=== PATIENT | male | born 1945 | race Caucasian/White ===

== ENCOUNTER 2018-05-07 15:47 | Inpatient (IN) | payer MEDICARE, OTHER ==
[~2018-05-07] VITALS: Ht 167.6 cm; Wt 69.9 kg
[2018-05-07 16:27] LABS: BASOPHILS # (AUTO) 0.1 /CMM (0.0-0.2); BASOPHILS % (AUTO) 1.1 % (0.0-2.0); EOSINOPHILS % (AUTO) 1.4 % (0.0-6.0); HEMATOCRIT 37 % (39-51); HEMOGLOBIN 12.6 g/dL (13.5-17.5); LYMPHOCYTES # (AUTO) 2.1 /CMM (0.8-4.8); LYMPHOCYTES % (AUTO) 23.4 % (20.0-44.0); MEAN CORPUSCULAR HGB CONC 34 g/dl (31.0-36.0); MEAN CORPUSCULAR VOLUME 100 fL (80-96); MONOCYTES # (AUTO) 1.3 /CMM (0.1-1.30); MONOCYTES % (AUTO) 14.2 % (2.0-12.0); NEUTROPHILS # (AUTO) 5.4 /CMM (1.8-8.9); NEUTROPHILS % (AUTO) 59.9 % (43.0-81.0); PLATELET COUNT (AUTO) 535 /CMM (150-450); RDW COEFFICIENT OF VARIATION 16.8 (11.5-15.0); RED BLOOD CELL COUNT(AUTO) 3.72 MIL/uL (4.5-6.0)
[2018-05-07 16:36] LABS: APPEARANCE,URINE Clear (CLEAR); BILIRUBIN,URINE Negative (NEGATIVE); BLOOD, URINE Negative Ery/uL (NEGATIVE); COLOR,URINE Yellow (YELLOW); KETONES,URINE Negative (NEGATIVE); LEUKOCYTE ESTERASE ,URINE Negative (NEGATIVE); NITRITE, URINE Negative (NEGATIVE); PH,URINE 5.5 (5.0-8.0); PROTEIN,URINE Negative (NEGATIVE); UGLUCOSE Negative (NEGATIVE); UROBILINOGEN,URINE 0.2 EU/dL (0.2)
[2018-05-07 16:37] LABS: CALCIUM, SERUM 8.8 mg/dL (8.5-10.1); CARBON DIOXIDE 30 mmol/L (21-32); CHLORIDE 108 mmol/L (98-107); CREATININE 1.1 mg/dL (0.6-1.3); GLUCOSE 112 mg/dL (74-106); POTASSIUM 4.2 mmol/L (3.5-5.1); SODIUM SERUM 144 mmol/L (136-145); UREA NITROGEN, BLOOD 20 mg/dL (7-18)
[2018-05-07 16:43] LABS: ALANINE AMINOTRANSFERASE 49 U/L (12-78); ALBUMIN 3.5 g/dL (3.4-5.0); ALKALINE PHOSPHATASE 49 U/L (46-116); ASPARTATE AMINOTRANSFERASE 23 U/L (15-37); BILIRUBIN,TOTAL 0.2 mg/dL (0.2-1.0); TOTAL PROTEIN, SERUM 6.7 g/dL (6.4-8.2)
[2018-05-07 16:44] LABS: SALICYLATE 1.1 mg/dL (2.8-20.0)
[2018-05-07 16:45] LABS: ACETAMINOPHEN < 2 ug/ml (10-30); ALCOHOL, BLOOD < 3 mg/dL (0-0)
--- NOTE | 2018-05-07 17:00 | NUR ---
Restless/agitated at times. Fall risk - In direct line of sight of nurses station being watched closely
--- NOTE | 2018-05-07 18:03 | NUR ---
Pt transferred to [facility]. NKE/Hand off to RAFA Haney
[2018-05-07] MEDS ORDERED: LORAZEPAM 0.5 MG TABLET PO PRN (18:30)
[2018-05-07] MEDS ORDERED: ACETAMINOPHEN 325 MG TABLET PO PRN (18:30)
[2018-05-07] MEDS ORDERED: MAG HYDROX/AL HYDROX/SIMETH 30 ML UDC PO PRN (18:30)
[2018-05-07] MEDS ORDERED: MAGNESIUM HYDROXIDE 30 ML UDC PO PRN (18:30)
[2018-05-07] MEDS ORDERED: LOSA50TA21 PO (18:34)
[2018-05-07] MEDS ORDERED: FINA5TAB11 PO (18:34)
[2018-05-07] MEDS ORDERED: DOCU100C36 PO (18:34)
[2018-05-07] MEDS ORDERED: FERR325T23 PO (18:34)
[2018-05-07] MEDS ORDERED: LEVO75TA7 PO (18:34)
[2018-05-07] MEDS ORDERED: MELA3TAB PO (18:34)
[2018-05-07] MEDS ORDERED: LORA0.5T PO (18:34)
[2018-05-07] MEDS ORDERED: MIRT15TA7 PO (18:34)
[2018-05-07] MEDS ORDERED: ZONI100C6 PO (18:34)
[2018-05-07] MEDS ORDERED: ATOR10TA PO (18:34)
[2018-05-07] MEDS ORDERED: CALC-263 PO (18:34)
[2018-05-07] MEDS ORDERED: MULT-213 PO (18:34)
--- NOTE | 2018-05-07 18:52 | NUR ---
RN-CO: DR Hudson was notified and gave admitting orders, noted.
--- NOTE | 2018-05-07 21:00 | NUR ---
ADMISSION NOTES ADMITTED THIS 72 Y/O MALE PATIENT ADMIT FROM [facility] /INTIALLY FROM [facility], , PT IS ON 5150 DANGER TO SELF , DANGER TO OTHERS, GRAVELY DISABLE HOLD , PER HOLD 5150 AGGRESSSION, COMBATIVE ,AGITATION, ABNORMAL PSYCHOTIC BEHAVIOR AND INCREASING AGITATION TOWARDS THE RESIDENTS AND STAFF , UPON FACE TO FACE ASSESSMENT PATIENT IS A&O X-1 DISORGNIZED, CONFUSED, UNCOOPERTIVE, AGGRESSIVE AND TRYING TO GET OUT THE BED, FLAT AFFECT ,EASILY AGITATED , PT.IS POOR HISTORIAN, POOR INSIGHT ,POOR JUDGEMENT ,V/S WNL, NO ACUTE DISTRESS NOTED , MD AWARE AND NOTIFIED OF THE ADMISSION, PT. ALLOWED ONLY SUPERFICIAL SKIN ASSESSMENT , PICTURES TAKEN AND PLACED IN THE CHART , ENCOURAGED PT. VERBALIZED ANY FEELING CONCERN TO STAFF, ORIENT TO UNIT POLICY, WILL CONTINUE TO MONITOR FOR Q15, CONTRACT FOR SAFETY AND BEHAVIOR.
[2018-05-07 21:06] VITALS: BP 128/65
[2018-05-07 22:36] VITALS: BP 118/76
[2018-05-08] MEDS ORDERED: Z GUARD REMEDY 4 OZ OINT TP PRN (06:00)
[2018-05-08 08:00] VITALS: BP 116/67
[2018-05-08] MEDS: LEVOTHYROXINE SODIUM 75 MCG TABLET PO SCH (09:31)
[2018-05-08] MEDS: CALCIUM CARB 250MG /VITAMIN D 1 UDTAB PO SCH (09:31)
[2018-05-08] MEDS: LOSARTAN POTASSIUM 50 MG TABLET PO SCH (09:31)
[2018-05-08] MEDS: ZONISAMIDE 100 MG CAPSULE PO SCH (09:31)
[2018-05-08] MEDS: FINASTERIDE (5 MG) 5 MG TABLET PO SCH (09:31)
[2018-05-08] MEDS: Z GUARD REMEDY 4 OZ OINT TP SCH (09:32)
[2018-05-08] MEDS: FERROUS SULFATE (325 MG) 325 MG/TAB TABLET PO SCH (09:32)
[2018-05-08 12:51] LABS: CHOLESTEROL 138 mg/dL (<200); HDL CHOLESTEROL 47 mg/dL (40-60); LDL 86 mg/dL (0-99); TRIGLYCERIDES 78 mg/dL (30-150)
[2018-05-08 12:58] LABS: ALANINE AMINOTRANSFERASE 49 U/L (12-78); ALBUMIN 3.9 g/dL (3.4-5.0); ALKALINE PHOSPHATASE 48 U/L (46-116); ASPARTATE AMINOTRANSFERASE 27 U/L (15-37); BILIRUBIN,TOTAL 0.4 mg/dL (0.2-1.0); CALCIUM, SERUM 9.7 mg/dL (8.5-10.1); CARBON DIOXIDE 26 mmol/L (21-32); CHLORIDE 106 mmol/L (98-107); GLUCOSE 124 mg/dL (74-106); POTASSIUM 4.2 mmol/L (3.5-5.1); SODIUM SERUM 143 mmol/L (136-145); TOTAL PROTEIN, SERUM 7.1 g/dL (6.4-8.2); UREA NITROGEN, BLOOD 26 mg/dL (7-18)
--- NOTE | 2018-05-08 14:30 | NUR ---
SW contacted pts Ethel ([phone]) to discuss d/c plan and acquire collateral information.
--- NOTE | 2018-05-08 15:03 | NUR ---
INATAL DISCHARGE PLAN: Per pts Ethel ([phone]) she wishes for pt to be discharged back to [facility] [place] [address] .SW contacted [facility] to confirm pts readmission. STEPHANIE spoke with [place] admission coordinator who stated he would return sw call regarding readmission. STEPHANIE will help form a safe and proper d/c in collaboration with pts and MD.
--- NOTE | 2018-05-08 15:49 | NUR ---
SW spoke with Harriet admission coordinator at [facility] Address: [address] [place] [address] who stated pt was discharged from their facility on 05/07/18 to [facility] and is not on a bed hold. Pt was admitted to SNF on 05/01/18 and discharged 05/07/18.
[2018-05-08 16:14] VITALS: BP 131/79
[2018-05-08] MEDS: OLANZAPINE 2.5 MG TABLET PO SCH (16:30)
[2018-05-08 20:32] VITALS: BP 150/80
[2018-05-08] MEDS: DOCUSATE SODIUM 100 MG CAPSULE PO SCH (21:43)
[2018-05-08] MEDS: ATORVASTATIN 10 MG TABLET PO SCH (21:43)
[2018-05-08] MEDS: DIVALPROEX SODIUM 125 MG CAP.SPRINK PO SCH (21:43)
[2018-05-08] MEDS ORDERED: Medication Not On Formulary EA (Melatonin 9 MG) PO SCH (22:00)
[2018-05-08] MEDS: TEMAZEPAM 7.5 MG CAPSULE PO PRN (22:31)
[2018-05-09 08:37] VITALS: BP 128/70
[2018-05-09] MEDS: ZONISAMIDE 100 MG CAPSULE PO SCH (09:35)
[2018-05-09] MEDS: DIVALPROEX SODIUM 125 MG CAP.SPRINK PO SCH ×2 (09:36→21:43)
[2018-05-09] MEDS: FINASTERIDE (5 MG) 5 MG TABLET PO SCH (09:36)
[2018-05-09] MEDS: CALCIUM CARB 250MG /VITAMIN D 1 UDTAB PO SCH (09:36)
[2018-05-09] MEDS: LEVOTHYROXINE SODIUM 75 MCG TABLET PO SCH (09:36)
[2018-05-09] MEDS: LOSARTAN POTASSIUM 50 MG TABLET PO SCH (09:36)
[2018-05-09] MEDS: OLANZAPINE 2.5 MG TABLET PO SCH ×2 (09:36→17:15)
[2018-05-09] MEDS: FERROUS SULFATE (325 MG) 325 MG/TAB TABLET PO SCH (09:36)
[2018-05-09 10:20] LABS: BASOPHILS # (AUTO) 0.1 /CMM (0.0-0.2); HEMATOCRIT 34 % (39-51); HEMOGLOBIN 11.6 g/dL (13.5-17.5); LYMPHOCYTES # (AUTO) 1.9 /CMM (0.8-4.8); MEAN CORPUSCULAR HGB CONC 34 g/dl (31.0-36.0); MEAN CORPUSCULAR VOLUME 102 fL (80-96); MONOCYTES # (AUTO) 1.5 /CMM (0.1-1.30); NEUTROPHILS # (AUTO) 8.5 /CMM (1.8-8.9); PLATELET COUNT (AUTO) 454 /CMM (150-450); RDW COEFFICIENT OF VARIATION 17.6 (11.5-15.0); RED BLOOD CELL COUNT(AUTO) 3.33 MIL/uL (4.5-6.0); WHITE BLOOD COUNT (AUTO) 12.1 K/uL (4.3-11.0)
[2018-05-09 10:31] LABS: BASOPHILS % (AUTO) 0.7 % (0.0-2.0); EOSINOPHILS % (AUTO) 1.2 % (0.0-6.0); LYMPHOCYTES % (AUTO) 15.4 % (20.0-44.0); MONOCYTES % (AUTO) 12.6 % (2.0-12.0); NEUTROPHILS % (AUTO) 70.1 % (43.0-81.0)
[2018-05-09 10:33] LABS: ALANINE AMINOTRANSFERASE 38 U/L (12-78); ALBUMIN 3.4 g/dL (3.4-5.0); ALKALINE PHOSPHATASE 44 U/L (46-116); ASPARTATE AMINOTRANSFERASE 18 U/L (15-37); BILIRUBIN,TOTAL 0.4 mg/dL (0.2-1.0); CALCIUM, SERUM 9.3 mg/dL (8.5-10.1); CARBON DIOXIDE 30 mmol/L (21-32); CHLORIDE 108 mmol/L (98-107); GLUCOSE 103 mg/dL (74-106); POTASSIUM 4.3 mmol/L (3.5-5.1); SODIUM SERUM 145 mmol/L (136-145); TOTAL PROTEIN, SERUM 6.6 g/dL (6.4-8.2); UREA NITROGEN, BLOOD 23 mg/dL (7-18)
[2018-05-09] MEDS: Z GUARD REMEDY 4 OZ OINT TP SCH (12:46)
[2018-05-09 16:50] VITALS: BP 107/69
--- NOTE | 2018-05-09 18:18 | NUR ---
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
[2018-05-09 20:00] VITALS: BP 123/55
[2018-05-09 20:09] LABS: APPEARANCE,URINE CLEAR (CLEAR); BILIRUBIN,URINE NEGATIVE (NEGATIVE); BLOOD, URINE 2+ Ery/uL (NEGATIVE); COLOR,URINE YELLOW (YELLOW); KETONES,URINE NEGATIVE (NEGATIVE); LEUKOCYTE ESTERASE ,URINE NEGATIVE (NEGATIVE); NITRITE, URINE NEGATIVE (NEGATIVE); PH,URINE 6.5 (5.0-8.0); PROTEIN,URINE NEGATIVE (NEGATIVE); UGLUCOSE NEGATIVE (NEGATIVE); UROBILINOGEN,URINE 0.2 EU/dL (0.2)
[2018-05-09 21:04] LABS: BACTERIA,URINE Rare /HPF (None Seen); SQUAMOUS EPITHELIAL CELL,UR Few /HPF (None Seen); WBC,URINE 0-2 /HPF (0-3)
[2018-05-09] MEDS: ATORVASTATIN 10 MG TABLET PO SCH (21:43)
[2018-05-09] MEDS: DOCUSATE SODIUM 100 MG CAPSULE PO SCH (21:44)
[2018-05-09] MEDS: TEMAZEPAM 7.5 MG CAPSULE PO PRN (21:44)
[2018-05-10 08:00] VITALS: BP 154/56
[2018-05-10] MEDS: FINASTERIDE (5 MG) 5 MG TABLET PO SCH (08:17)
[2018-05-10] MEDS: ZONISAMIDE 100 MG CAPSULE PO SCH (08:17)
[2018-05-10] MEDS: FERROUS SULFATE (325 MG) 325 MG/TAB TABLET PO SCH (08:18)
[2018-05-10] MEDS: DIVALPROEX SODIUM 125 MG CAP.SPRINK PO SCH ×2 (08:18→22:10)
[2018-05-10] MEDS: CALCIUM CARB 250MG /VITAMIN D 1 UDTAB PO SCH (08:18)
[2018-05-10] MEDS: LOSARTAN POTASSIUM 50 MG TABLET PO SCH (08:18)
[2018-05-10] MEDS: LEVOTHYROXINE SODIUM 75 MCG TABLET PO SCH (08:18)
[2018-05-10] MEDS: OLANZAPINE 2.5 MG TABLET PO SCH ×2 (08:18→16:33)
[2018-05-10] MEDS: Z GUARD REMEDY 4 OZ OINT TP SCH (08:18)
--- NOTE | 2018-05-10 09:30 | NUR ---
WOUND CARE CONSULT: PT PRESENTS WITH INCONTINENCE AND MULTIPLE SCABS TO ARMS, PRESENT ON ADMISSION. RECOMMENDATIONS MADE FOR SKIN PROTECTION AND DISCUSSED WITH NURSING STAFF. WILL SEE PRN. IN AGREEMENT WITH PLAN OF CARE.
--- NOTE | 2018-05-10 10:01 | NUR ---
STEPHANIE contacted pts Ethel ([phone]) to discuss SNF referral. Pts asked if pt was able to return to [facility] Address: [facility] [address], [place] [address] . STEPHANIE informed her that STEPHANIE had contacted the music coordinator Harriet who stated that pt was discharged from their facility and wasn't able to readmit. Pts stated that she would be contacting [facility] because they told her pt would be able to return once stable. STEPHANIE also informed pts that MD is recommending pt be referred to [facility], pts agreed but wants to ask Sheila first if pt can return once stable.
--- NOTE | 2018-05-10 12:25 | NUR ---
SW received a voicemail from pts Ethel ([phone]) stating that SW had received the incorrect information and that she had contacted [facility] and someone mentioned to her that pt could return to the facility. Pts requested SW contact Harriet, tool procurement coordinator to get correct information regarding pts readmission to the facility.
--- NOTE | 2018-05-10 12:43 | NUR ---
STEPHANIE spoke with Harriet admission coordinator at [facility] Address: [address] [place] [address] regarding readmission per pts 's request. Harriet stated to STEPHANIE that pt needs to be referred and evaluated to determine if he is stable for admission. STEPHANIE will contact pts to inform her.
--- NOTE | 2018-05-10 12:54 | NUR ---
SW contacted pts Ethel ([phone]) and left a voicemail providing her with the information the health service coordinator at [facility] provided SW regarding pt not being accepted back and SW needing to refer pt and facility needing to evaluate and determine acceptance.
[2018-05-10 16:00] VITALS: BP 124/65
[2018-05-10 20:00] VITALS: BP 157/76
[2018-05-10] MEDS: ATORVASTATIN 10 MG TABLET PO SCH (22:10)
[2018-05-10] MEDS: TEMAZEPAM 7.5 MG CAPSULE PO PRN (22:10)
[2018-05-10] MEDS: DOCUSATE SODIUM 100 MG CAPSULE PO SCH (22:10)
--- NOTE | 2018-05-10 23:45 | NUR ---
GPS RN NOTE: PATIENT NOTED WITH PRODUCTIVE COUGH, HOB ELEVATED IN A SEMI FOWLERS POSITION, PATIENT HAS NO FEVER, HAD AN HISTORY OF PNA. NOTIFIED LINE MAINTENANCE TECHNICIAN BEATTY WITH ORDERS OF CHEST X RAY NOTED AND CARRIED OUT
--- NOTE | 2018-05-11 07:24 | NUR ---
GPS RN NOTE: LEFT MESSAGE TO REGARDING THE RESULT OF CXR, NOTIFIED RT REGARDING THE SPUTUM COLLECTION. ENDORSE TO CONTINUE TO FOLLOW UP
[2018-05-11 08:00] VITALS: BP 107/59
--- NOTE | 2018-05-11 08:00 | NUR ---
RT NOTE SPUTUM FOR GRAM STAIN ORDERED, PT ASLEEP AT THIS TIME, SPOKE TO DAYAN RN, SAYS HE IS ALERT ENOUGH TO COUGH IT ON HIS OWN. RN MADE AWARE
[2018-05-11] MEDS: FERROUS SULFATE (325 MG) 325 MG/TAB TABLET PO SCH (08:07)
[2018-05-11] MEDS: OLANZAPINE 2.5 MG TABLET PO SCH ×2 (08:08→16:14)
[2018-05-11] MEDS: FINASTERIDE (5 MG) 5 MG TABLET PO SCH (08:08)
[2018-05-11] MEDS: DIVALPROEX SODIUM 125 MG CAP.SPRINK PO SCH ×2 (08:08→21:00)
[2018-05-11] MEDS: CALCIUM CARB 250MG /VITAMIN D 1 UDTAB PO SCH (08:08)
[2018-05-11] MEDS: LEVOTHYROXINE SODIUM 75 MCG TABLET PO SCH (08:09)
[2018-05-11] MEDS: LOSARTAN POTASSIUM 50 MG TABLET PO SCH (08:09)
[2018-05-11] MEDS: ZONISAMIDE 100 MG CAPSULE PO SCH (08:10)
[2018-05-11] MEDS: Z GUARD REMEDY 4 OZ OINT TP SCH (09:12)
[2018-05-11 16:00] VITALS: BP 110/69
--- NOTE | 2018-05-11 19:30 | NUR ---
GPS RN NOTE, RECEIVED PATIENT AWAKE AND IN BED, NO S/S OR COMPLAINTS OF PAIN AT THIS TIME. PATIENT IS DISPLAYING NO S/S OF APPARENT DISTRESS AT THIS TIME. PATIENT BREATHING IS UNLABORED WITH EQUAL RISE AND FALL OF THE CHEST. PATIENT IS ALERT AND ORIENTED X 1 ON ROOM AIR WITH A SPO2 OF 96%. PATIENT IS MED COMPLIANT, CALM, COOPERATIVE, DISORGANIZED, CONFUSED AT TIMES, AND NEEDS REDIRECTION. PATIENT DENIES SUICIDE IDEATIONS AND HOMICIDAL IDEATIONS AT THIS TIME. PATIENT ASSISTED WITH TURNING AND REPOSITIONING Q 2HRS AND PRN FOR COMFORT AND CIRCULATION. PATIENT HAS NO NEEDS AT THIS TIME. PATIENT EDUCATED ON THE USE OF THE CALL FLOWERS. PATIENT BED SIDE RAILS UP X 2 FOR SAFETY, BED IS LOCKED, LOW, AND I WILL CONTINUE TO MONITOR AND MAINTAIN SAFETY Q15 MIN WITH THE HELP OF STAFF.
[2018-05-11 20:16] VITALS: BP 100/52
[2018-05-11] MEDS: ATORVASTATIN 10 MG TABLET PO SCH (22:00)
[2018-05-11] MEDS: DOCUSATE SODIUM 100 MG CAPSULE PO SCH (22:00)
--- NOTE | 2018-05-11 22:10 | NUR ---
GPS RN NOTE, PATIENT REFUSED TO TAKE DEPAKOTE SPRINKLE 250MG PO Q12HR, COLACE 200 MG PO HS, AND LIPITOR 10 MG PO HS. OFFERED AFOREMENTIONED THREE TIMES STILL PATIENT REFUSED. EDUCATED THE PATIENT ON THE RISKS AND BENEFITS OF TAKING AND REFUSING DEPAKOTE, COLACE, AND LIPITOR. WILL CONTINUE TO MONITOR THIS PATIENT.
--- NOTE | 2018-05-11 23:47 | NUR ---
GPS RN NOTE, PATIENT HAS A COMPLAINT OF A PERSISTENT COUGH. PAGED [facility] AND INFORMED CORDELIA ANDERSON NP OF MY FINDINGS. CORDELIA ANDERSON NP ORDERED ROBITUSSIN AC SYRUP 10 ML PO Q6HR PRN. ALL ORDERES NOTED AND CARRIED OUT. WILL CONTINUE TO MONITOR THIS PATIENT.
[2018-05-12] MEDS ORDERED: GUAIFENESIN/CODEINE 10 ML UDC PO PRN
[2018-05-12] MEDS ORDERED: GUAIFENESIN/D-METHORPHAN HB 5 ML UDC PO PRN
[2018-05-12 08:00] VITALS: BP 133/58
[2018-05-12 09:00] VITALS: BP 133/58
[2018-05-12] MEDS: FINASTERIDE (5 MG) 5 MG TABLET PO SCH (09:00)
[2018-05-12] MEDS: LOSARTAN POTASSIUM 50 MG TABLET PO SCH (09:00)
[2018-05-12] MEDS: CALCIUM CARB 250MG /VITAMIN D 1 UDTAB PO SCH (09:39)
[2018-05-12] MEDS: FERROUS SULFATE (325 MG) 325 MG/TAB TABLET PO SCH (09:40)
[2018-05-12] MEDS: ZONISAMIDE 100 MG CAPSULE PO SCH (09:40)
[2018-05-12] MEDS: LEVOTHYROXINE SODIUM 75 MCG TABLET PO SCH (09:40)
[2018-05-12] MEDS: DIVALPROEX SODIUM 125 MG CAP.SPRINK PO SCH (09:40)
[2018-05-12] MEDS: OLANZAPINE 2.5 MG TABLET PO SCH (09:42)
[2018-05-12] MEDS ORDERED: AZITHROMYCIN 250 MG TABLET PO SCH (13:00)
--- NOTE | 2018-05-12 14:00 | NUR ---
RN NOTES PT IN ROOM, DIFFICULT TO AROUSE. DELAYED IN RESPONSE WITH WORDS SLURRED. UPON ASSESSMENT, PT'S BREATHING APPEARS LABORED, EVEN BUT SHALLOW DEPTH OF BREATHING, RR 24, O2 SAT AT 85%. UPON AUSCULTATION CRACKLES SUGGESTING CONGESTION ARE AUDIBLE. PER PREVIOUS CXR ON 05/10, PT NEGATIVE FOR PNA. SPUTUM CX NEGATIVE. STAT CXR ORDERED, MD NOTIFIED. PT BEGAN ON 5L O2 VIA NON REBREATHER. MD ORDER TO TRANSFER PT TO ICU. WILL ENDORSE TO PLANT CLERK FOR GERTRUDE.
[2018-05-12 14:28] LABS: ABG BASE EXCESS 1.7 mmol/L; ABG OXYGEN SATURATION 82.6 % (92.0-98.5); ABG PCO2 35.5 mmHg (35.0-45.0); ABG PH 7.468 (7.350-7.450); ABG PO2 45.3 mmHg (75.0-100.0); AaDO2 61.9 mmHg; COHb 0.8 % (0.5-1.5); MetHb 0.3 % (0.0-1.5); O2Hb 81.7 % (94.0-97.0); SITE, ABG Right Radial; VENT MODE, BG ROOM AIR
--- NOTE | 2018-05-12 14:36 | NUR ---
RT Called to [facility] unit to sx patient. Found patient lethargic with an SPo2 of 82%. Abg performed and placed patient on 15 L non rebreather per Jeana Toledo and abg results. Patient to be transfered to [facility].
--- NOTE | 2018-05-12 15:30 | NUR ---
RN NOTES PT TRANSFERRED TO ICU, ACCOMPANIED BY RAFA DELONG. REPORT GIVEN AT BEDSIDE. FAMILY INFORMED OF PT TRANSFER. CARE OF PT ENDORSED TO ICU.
[2018-05-12 16:20] LABS: BASOPHILS # (AUTO) 0.1 /CMM (0.0-0.2); BASOPHILS % (AUTO) 0.4 % (0.0-2.0); HEMATOCRIT 36 % (39-51); HEMOGLOBIN 11.9 g/dL (13.5-17.5); LYMPHOCYTES % (AUTO) 3.4 % (20.0-44.0); MEAN CORPUSCULAR HGB CONC 33 g/dl (31.0-36.0); MEAN CORPUSCULAR VOLUME 102 fL (80-96); MONOCYTES % (AUTO) 10.1 % (2.0-12.0); NEUTROPHILS # (AUTO) 25.7 /CMM (1.8-8.9); NEUTROPHILS % (AUTO) 86.1 % (43.0-81.0); PLATELET COUNT (AUTO) 394 /CMM (150-450); RED BLOOD CELL COUNT(AUTO) 3.53 MIL/uL (4.5-6.0); WHITE BLOOD COUNT (AUTO) 29.9 K/uL (4.3-11.0)
[2018-05-12 16:28] LABS: CALCIUM, SERUM 9.2 mg/dL (8.5-10.1); CARBON DIOXIDE 25 mmol/L (21-32); CHLORIDE 107 mmol/L (98-107); CREATININE 1.1 mg/dL (0.6-1.3); GLUCOSE 113 mg/dL (74-106); POTASSIUM 4.3 mmol/L (3.5-5.1); SODIUM SERUM 143 mmol/L (136-145); UREA NITROGEN, BLOOD 18 mg/dL (7-18)
[2018-05-12 16:36] LABS: ALANINE AMINOTRANSFERASE 22 U/L (12-78); ALBUMIN 3.2 g/dL (3.4-5.0); ALKALINE PHOSPHATASE 55 U/L (46-116); ASPARTATE AMINOTRANSFERASE 15 U/L (15-37); BILIRUBIN,TOTAL 0.8 mg/dL (0.2-1.0); MAGNESIUM 2.2 mg/dL (1.8-2.4); PHOSPHORUS 3.8 mg/dL (2.5-4.9); TOTAL PROTEIN, SERUM 6.8 g/dL (6.4-8.2)
[2018-05-12] MEDS ORDERED: ACETYLCYSTEINE 20% ORAL SOLN 6,000 MG/30 ML VIAL PO SCH (21:00)
--- NOTE | 2018-05-13 10:58 | NUR ---
DISCHARGE NOTE: Pt was discharged to ICU due to acute respiratory failure.
[2018-05-20] MEDS ORDERED: LOSA50TA3 PO (12:20)
[2018-06-04] MEDS ORDERED: CALC-7 PO (07:41)
[2018-06-04] MEDS ORDERED: NA P133E RC (07:42)
[2018-06-04] MEDS ORDERED: ACET-2605 PO (07:42)
[2018-06-04] MEDS ORDERED: SERT25TA PO (07:42)
[2018-06-04] MEDS ORDERED: BUSP5TAB3 PO (07:42)
[2018-06-04] MEDS ORDERED: ALBU2.5V38 IH (07:42)
[2018-06-04] MEDS ORDERED: BISA10SU8 RC (07:42)
[2018-06-04] MEDS ORDERED: SENN-168 PO (07:42)
[2018-06-04] MEDS ORDERED: ACET-868 PO (07:42)
[2018-06-04] MEDS ORDERED: MAGN400O6 PO (07:42)
== END 2018-05-12 15:16 | disposition short-term general hospital (02) | DRG 885 ==
LOC: ER 15:49 → GPS 17:57
PROVIDERS: ADMIT Psychiatry & Neurology Psychosomatic Medicine; ATTEND Registered Nurse
DX: F29 Unspecified psychosis not due to a substance or known physiological condition (principal); G92 Toxic encephalopathy; J18.9 Pneumonia, unspecified organism; J96.01 Acute respiratory failure with hypoxia; R45.851 Suicidal ideations; F41.9 Anxiety disorder, unspecified; D50.9 Iron deficiency anemia, unspecified; D72.829 Elevated white blood cell count, unspecified; E03.9 Hypothyroidism, unspecified; E78.5 Hyperlipidemia, unspecified; E86.0 Dehydration; F32.9 Major depressive disorder, single episode, unspecified; G47.00 Insomnia, unspecified; I10 Essential (primary) hypertension; G30.9 Alzheimer's disease, unspecified; F02.80 Dementia in other diseases classified elsewhere, unspecified severity, without behavioral disturbance, psychotic disturbance, mood disturbance, and anxiety; R00.1 Bradycardia, unspecified; R79.89 Other specified abnormal findings of blood chemistry
CPT/HCPCS: 36415; 36600; 71045-TC; 80048-TC; 80053-TC; 80061-TC; 80076-TC; 80305; 81000-TC; 83605-TC; 83735-TC; 84100-TC; 85025-TC; 87040-TC; 87070-TC; 87081-TC; 87086-TC; A4606; G0480; Z7610